=== PATIENT | male | born 1980 | race Caucasian/White ===

== ENCOUNTER 2025-07-11 23:18 | Emergency (ER) | payer OTHER, SELFPAY ==
[2025-07-11] MEDS ORDERED: Ondansetron PF 4 MG/2 ML Vial ONE (23:48)
[2025-07-12] MEDS ORDERED: Ketorolac Tromethamine 30 MG (1 mL) VIAL ONE (00:04)
[2025-07-12 00:09] LABS: Hematocrit 42.4 % (42.0-52.0); Hemoglobin 15.8 g/dL (14.0-18.0); Mean Corpuscular Hemoglobin 32.4 pg (27.0-31.0); Mean Corpuscular Volume 87.3 fl (78.0-98.0); Platelet Count 218 10x3/uL (130-400); Red Blood Cell (RBC) Count 4.77 mill/uL (4.70-6.10); White Blood Cell (WBC) Count 6.8 10x3/uL (4.8-10.8)
[2025-07-12 00:16] LABS: Troponin I 0.019 ng/mL (< 0.028)
[2025-07-12 00:18] LABS: ALT (SGPT) 38 U/L (Less than 45); AST (SGOT) 35 U/L (11-34); Albumin 4.0 g/dL (3.1-4.5); Alkaline Phosphatase 70 U/L (40-110); Anion Gap 18 mmol/L (10-20); BUN (Urea Nitrogen) 9 mg/dL (8.9-20.6); Bilirubin, Total 0.4 mg/dL (0.3-1.2); Calc. Creatinine Clearance 0 mL/min (70-130); Calcium 8.8 mg/dL (7.8-10.44); Carbon Dioxide 21 mmol/L (22-29); Chloride 105 mmol/L (98-107); Globulin 3.6 g/dL (2.4-3.5); Glucose 145 mg/dL (70-105); Potassium 4.1 mmol/L (3.5-5.1); Sodium 140 mmol/L (136-145)
[2025-07-12 01:36] LABS: Troponin I 0.031 ng/mL (< 0.028)
[2025-07-12 01:41] LABS: Cocaine Metabolite Screen Negative (Negative); THC/Cannabinoid Screen Negative (Negative); Tricyclic Screen Negative (Negative)
[2025-07-12] MEDS ORDERED: Enoxaparin 100 MG (1 mL) SYRINGE ONE (02:05)
[2025-07-12 03:03] LABS: MDiff Complete? YES
== END 2025-07-12 02:35 | disposition short-term general hospital (02) ==
LOC: BURERS 23:18
DX: R07.9 Chest pain, unspecified (principal); I10 Essential (primary) hypertension; F17.210 Nicotine dependence, cigarettes, uncomplicated; F17.290 Nicotine dependence, other tobacco product, uncomplicated
CPT/HCPCS: 36415; 71045; 71275; 80053; 80306; 83880; 84484; 85025; 93005; 96372; 96374; 96375; 96376; J1650; J1885; J2405